=== PATIENT | female | born 1965 | race Caucasian/White ===

== ENCOUNTER 2016-11-10 13:06 | Emergency (ER) | payer BC ==
[2016-11-10 14:02] VITALS: BP 144/85
--- NOTE | 2016-11-10 15:09 | EDM.PDOC ---
ED HPI GENERAL MEDICAL PROBLEM - General Chief Complaint: Genitourinary Problem Stated Complaint: BLADDER/UTI Time Seen by Provider: 11/10/16 15:05 Source of Information: Reports: Patient History Limitations: Reports: No Limitations - History of Present Illness INITIAL COMMENTS - FREE TEXT/NARRATIVE: 51 yo white female c/o dysuria X 1 day Onset Date: 11/09/16 Onset Time: 12:00 Duration: Day(s): Location: Reports: Abdomen Quality: Reports: Burning Severity: Moderate Suprapubic Pain Score (Numeric/FACES): 3 - Related Data Allergies Allergy/AdvReac Type Severity Reaction Status Date / Time Latex, Natural Rubber Allergy Rash Verified 11/10/16 14:02 Sulfa (Sulfonamide Allergy Rash Verified 09/16/16 14:23 Antibiotics) Home Meds: Home Meds . 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 Neurological History: Reports: Other (See Below) Other Neuro History: Trigeminal Neuralgia Psychiatric History: Reports: None Endocrine/Metabolic History: Reports: None Hematologic History: Reports: None Immunologic History: Reports: None Oncologic (Cancer) History: Reports: None Dermatologic History: Reports: None - Infectious Disease History Infectious Disease History: Reports: Chicken Pox, Mumps - Past Surgical History Head Surgeries/Procedures: Reports: None Female Surgical History: Reports: Hysterectomy Neurological Surgical History: Reports: Other (See Below) Other Neurological Surgeries/Procedures: Laminectomy and microdiscectomy 10/12/16 Other Musculoskeletal Surgeries/Procedures:: back surgery Social & Family History - Tobacco Use Smoking Status *Q: Never Smoker Second Hand Smoke Exposure: No - Caffeine Use Caffeine Use: Reports: Coffee, Tea - Recreational Drug Use Recreational Drug Use: No ED ROS GENERAL - Review of Systems Review Of Systems: See Below Constitutional: Reports: No Symptoms HEENT: Reports: No Symptoms Respiratory: Reports: No Symptoms Cardiovascular: Reports: No Symptoms Endocrine: Reports: No Symptoms GI/Abdominal: Reports: Abdominal Pain : Reports: No Symptoms Musculoskeletal: Reports: No Symptoms Skin: Reports: No Symptoms Neurological: Reports: No Symptoms Psychiatric: Reports: No Symptoms Hematologic/Lymphatic: Reports: No Symptoms Immunologic: Reports: No Symptoms ED EXAM, RENAL/ - Physical Exam Exam: See Below Exam Limited By: No Limitations General Appearance: Alert, WD/WN Throat/Mouth: Normal Inspection Head: Atraumatic Neck: Normal Inspection Respiratory/Chest: No Respiratory Distress Cardiovascular: Normal Peripheral Pulses GI/Abdominal: Tender (suprapubic area) Back Exam: Normal Inspection Extremities: Normal Inspection Neurological: Alert, Oriented, CN II-XII Intact Psychiatric: Normal Affect Skin Exam: Warm Lymphatic: No Adenopathy Course - Vital Signs Last Recorded V/S: Last Vital Signs Temp 36.9 C 11/10/16 13:56 Pulse 96 11/10/16 13:56 Resp 16 11/10/16 13:56 BP 144/85 H 11/10/16 13:56 Pulse Ox 100 11/10/16 13:56 - Orders/Labs/Meds Orders: Active Orders 24 hr Category Date Time Status CULTURE URINE [RM] Stat Lab 11/10/16 15:02 Uncollected UA W/MICROSCOPIC [URIN] Stat Lab 11/10/16 15:02 Uncollected Labs: Laboratory Tests 11/10/16 Range/Units 13:53 Urine Color Yellow (YELLOW) Urine Appearance Slightly cloudy (CLEAR) Urine pH 7.0 (5.0-9.0) Ur Specific [place] 1.010 (1.005-1.030) Urine Protein Negative (NEGATIVE) Urine Glucose (UA) Negative (NEGATIVE) Urine Ketones Trace H (NEGATIVE) Urine Occult Blood Small H (NEGATIVE) Urine Nitrite Negative (NEGATIVE) Urine Bilirubin Negative (NEGATIVE) Urine Urobilinogen 0.2 (0.2-1.0) mg/dL Ur Leukocyte Esterase Moderate H (NEGATIVE) Urine RBC 0-5 /HPF Urine WBC 50-75 H (0-5/HPF) /HPF Ur Epithelial Cells Moderate H /HPF Urine Bacteria Many H (0-FEW/HPF) /HPF Departure - Departure Time of Disposition: 15:07 Disposition: Home, Self-Care 01 Condition: Good Clinical Impression: UTI, Urinary tract infectious disease - Discharge Information Instructions: Urinary Tract Infection, Adult, Eczh-bo-Wwal Forms: ED Department Discharge Additional Instructions: Increase intake of Water and Cranberry Juice Take the Macrobid 100mg BID # 20 and Pyridium 100mg TID # 9 F/U w/ PCP - My Orders Last 24 Hours: My Active Orders 11/10/16 15:02 CULTURE URINE [RM] Stat UA W/MICROSCOPIC [URIN] Stat - Assessment/Plan Last 24 Hours: My Active Orders 11/10/16 15:02 CULTURE URINE [RM] Stat UA W/MICROSCOPIC [URIN] Stat
== END 2016-11-10 15:18 | disposition home or self-care (01) ==
LOC: DL.ED 13:06
DX: N39.0 Urinary tract infection, site not specified (principal); Z88.2 Allergy status to sulfonamides; Z91.040 Latex allergy status; Z90.710 Acquired absence of both cervix and uterus; Z98.890 Other specified postprocedural states
CPT/HCPCS: 81001; 99284

== ENCOUNTER 2016-12-11 19:07 | Emergency (ER) | payer BC ==
[2016-12-11] MEDS ORDERED: Acetaminophen/HYDROcodone 325-10 MG Tab PO ONE (19:08)
[2016-12-11 19:17] VITALS: BP 146/87
[2016-12-11] MEDS ORDERED: Sodium Chloride 0.9% 1,000 ML IV ONE (20:18)
[2016-12-11] MEDS ORDERED: Iopamidol 612 MG/ML 75 ML Bottle IVPUSH ONE (20:18)
--- NOTE | 2016-12-11 20:23 | EDM.PDOC ---
ED HPI GENERAL MEDICAL PROBLEM - General Chief Complaint: Abdominal Pain Stated Complaint: RT SIDED PAIN, [id number] Time Seen by Provider: 12/11/16 20:20 Source of Information: Reports: Patient History Limitations: Reports: No Limitations - History of Present Illness INITIAL COMMENTS - FREE TEXT/NARRATIVE: 1 week h/o progressive RLQ pain all started with massage therapy. Right Lower Abdomen Pain Score (Numeric/FACES): 6 - Related Data Allergies Allergy/AdvReac Type Severity Reaction Status Date / Time latex Allergy Rash Verified 12/11/16 19:17 Sulfa (Sulfonamide Allergy Rash Verified 12/11/16 19:17 Antibiotics) Home Meds: Home Meds Omeprazole Magnesium [Prilosec Otc] 20 mg PO DAILY 12/11/16 [History] Past Medical History - Past Surgical History Female Surgical History: Reports: Hysterectomy Musculoskeletal Surgical History: Reports: Other (See Below) Other Musculoskeletal Surgeries/Procedures:: back surgery Social & Family History - Tobacco Use Smoking Status *Q: Never Smoker Second Hand Smoke Exposure: No - Recreational Drug Use Recreational Drug Use: No ED ROS GENERAL - Review of Systems Review Of Systems: ROS reveals no pertinent complaints other than HPI. ED EXAM, GI/ABD - Physical Exam Exam: See Below Exam Limited By: No Limitations General Appearance: Alert, WD/WN, Mild Distress, Other (discomfort) Ears: Hearing Grossly Normal Throat/Mouth: Normal Voice, No Airway Compromise Head: Atraumatic Neck: Non-Tender, Full Range of Motion Respiratory/Chest: No Respiratory Distress Cardiovascular: Regular Rate, Rhythm GI/Abdominal Exam: Guarding, Tender, Other (RLQ ). No: Rigid, Rebound Neurological: Alert, Oriented, Normal Cognition, No Motor/Sensory Deficits, Other (gait limited to pain) Psychiatric: Tearful Skin Exam: Warm, Dry, Normal Color Lymphatic: No Adenopathy Course - Vital Signs Last Recorded V/S: Last Vital Signs Temp 36.6 C 12/11/16 19:12 Pulse 93 12/11/16 19:12 Resp 18 12/11/16 19:12 BP 146/87 H 12/11/16 19:12 Pulse Ox 100 12/11/16 19:12 - Orders/Labs/Meds Labs: Laboratory Tests 12/11/16 12/11/16 12/11/16 Range/Units 20:27 20:27 21:23 WBC 6.4 (5.0-10.0) 10^3/uL RBC 4.10 L (4.2-5.4) 10^6/uL Hgb 13.0 (12.0-16.0) g/dL Hct 37.6 (37.0-47.0) % MCV 91.7 (80-100) fL MCH 31.7 (27.0-34.0) pg MCHC 34.6 (33.0-35.0) g/dL Plt Count 285 (150-450) 10^3/uL Neut % (Auto) 65.4 (42.2-75.2) % Lymph % (Auto) 24.9 (20.5-50.1) % [place] % (Auto) 8.5 H (2-8) % Eos % (Auto) 0.9 L (1.0-3.0) % Baso % (Auto) 0.3 (0.0-1.0) % Sodium 142 (135-145) mmol/L Potassium 3.4 L (3.6-5.0) mmol/L Chloride 104 (101-111) mmol/L Carbon Dioxide 25.0 (21.0-31.0) mmol/L Anion Gap 16.4 BUN 15 (7-18) mg/dL Creatinine 0.8 (0.6-1.3) mg/dL Est Cr Clr Drug Dosing 78.76 mL/min Estimated GFR (MDRD) > 60 BUN/Creatinine Ratio 18.75 Glucose 109 H (74-105) mg/dL Calcium 9.5 (8.4-10.2) mg/dl Total Bilirubin 0.9 (0.2-1.0) mg/dL AST 22 (10-42) IU/L ALT 16 (10-60) IU/L Alkaline Phosphatase 78 (42-121) IU/L Total Protein 7.7 (6.7-8.2) g/dl Albumin 4.6 (3.2-5.5) g/dl Globulin 3.1 Albumin/Globulin Ratio 1.48 Urine Color Light yellow (YELLOW) Urine Appearance Clear (CLEAR) Urine pH 7.0 (5.0-9.0) Ur Specific [place] 1.010 (1.005-1.030) Urine Protein Negative (NEGATIVE) Urine Glucose (UA) Negative (NEGATIVE) Urine Ketones Negative (NEGATIVE) Urine Occult Blood Negative (NEGATIVE) Urine Nitrite Negative (NEGATIVE) Urine Bilirubin Negative (NEGATIVE) Urine Urobilinogen 0.2 (0.2-1.0) mg/dL Ur Leukocyte Esterase Negative (NEGATIVE) Urine RBC Not seen /HPF Urine WBC Not seen (0-5/HPF) /HPF Ur Epithelial Cells Rare /HPF Meds: Medications Discontinued Medications Generic Name Dose Route Start Last Admin Trade Name Freq PRN Reason Stop Dose Admin Sodium Chloride 1,000 mls @ 500 mls/hr 12/11/16 20:18 12/11/16 20:31 Normal Saline IV 12/11/16 22:17 500 mls/hr .BOLUS ONE Administration Iopamidol 75 ml 12/11/16 20:18 12/11/16 21:08 Isovue-300 (61%) IVPUSH 12/11/16 20:19 75 ml ONETIME ONE Administration - Re-Assessments/Exams Free Text/Narrative Re-Assessment/Exam: 12/11/16 22:[address] Villanueva @ who rec' routine H/H check since pt's stable and been like tis past week. but recheck prn. 12/11/16 22:42 results discussed with pt who felt relieved that it wasn't something surgically emergent and will do routine H/H. Departure - Departure Time of Disposition: 22:43 Disposition: Home, Self-Care 01 Condition: Good Clinical Impression: Abdominal pain Qualifiers: Abdominal location: right lower quadrant Qualified Code(s): R10.31 - Right lower quadrant pain Intra-abdominal hematoma Qualifiers: Encounter type: initial encounter Qualified Code(s): S36.92XA - Contusion of unspecified intra-abdominal organ, initial encounter - Discharge Information Instructions: Abdominal Pain, Adult, [id number] Forms: ED Department Discharge Additional Instructions: 1) avoid bending lifting straining or further trauma 2) repeat H/H on Friday and every 3 days for 3 more times 3) return if there is any change or concerns rx given; vicodin 5/325mg bid prn x 12
[2016-12-11 20:51] LABS: CHLORIDE,CL 104 mmol/L (101-111); SODIUM,NA 142 mmol/L (135-145)
[2016-12-11] MEDS ORDERED: Acetaminophen/HYDROcodone 325-10 MG Tab ONE (22:45)
== END 2016-12-11 22:53 | disposition home or self-care (01) ==
LOC: DL.ED 19:07 → MERGE 19:07 → DL.ED 22:53
DX: S36.92XA Contusion of unspecified intra-abdominal organ, initial encounter (principal); Z88.2 Allergy status to sulfonamides; Z91.040 Latex allergy status; Z79.899 Other long term (current) drug therapy; Z90.710 Acquired absence of both cervix and uterus; X58.XXXA Exposure to other specified factors, initial encounter
CPT/HCPCS: 36415; 74177; 80053; 81001; 85025; 96360; 96361; 99284; A9270; J7030; Q9967